=== PATIENT | female | born 2000 | race Caucasian/White ===

== ENCOUNTER 2018-08-27 21:28 | Emergency (ER) | payer OTHER ==
[2018-08-27 21:32] VITALS: TEMP 97.4
--- NOTE | 2018-08-27 21:37 | ED ---
Abdominal Pain HPI - General Source: patient Mode of arrival: ambulatory Limitations: no limitations <Riana Parham - Last Filed: 08/28/18 00:03> <Beckie Stuart - Last Filed: 08/28/18 05:17> <Ronnie Brownssodette Bravo - Last Filed: 08/28/18 06:47> - General Chief Complaint: Abdominal Pain Stated Complaint: Abd Pain Time Seen by Provider: 08/27/18 21:37 - History of Present Illness Initial Comments: 17 year female no past medical history presents today for chief complaint abdominal pain, n/v/d x 3 hours. Patient states that she has had nausea, vomiting abdominal pains since 6 p.m. He states that abdominal pain is diffuse , it is a crampy feeling almost as though her muscles are flexing. In addition patient admits to watery diarrhea, she has had 2 episodes of emesis, patient denies any hematemesis, melena or hematochezia. Patient denies any foul- smelling diarrhea or greasy stools. Patient denies any recent travel, or sick contacts. Patient denies any fever, chills, urgency, frequency, dysuria, hematuria, vaginal bleeding, vaginal discharge, chest pain, shortness of breath , dyspnea on exertion, back pain, flank pain, cough, rigors, sputum production. She states her last menstrual period was 07/27/2008, denies . Remainder of ROS negative. Patient appears well, in no acute distress, patient is ambulating without difficulty. (Riana Parham) - Related Data Home Medications Medication Instructions Recorded Confirmed Amoxic-Pot Clav 875-125Mg 1 tab PO BID 08/27/18 08/27/18 [Augmentin 875-125] Tri-Lo Jessie 1 tab PO DAILY 08/27/18 08/27/18 Previous Rx's Medication Instructions Recorded Famotidine [Pepcid] 20 mg PO BID #20 tablet 08/28/18 Ondansetron Odt [Zofran Odt] 4 mg PO Q8HR PRN #12 tab 08/28/18 Allergies Allergy/AdvReac Type Severity Reaction Status Date / Time No Known Allergies Allergy Verified 08/27/18 23:21 Review of Systems ROS Other: All systems not noted in ROS Statement are negative. Constitutional: Denies: fever, chills, night sweats ENT: Denies: ear pain, throat pain Respiratory: Denies: cough, dyspnea, wheezes Cardiovascular: Denies: chest pain, palpitations, dyspnea on exertion Endocrine: Denies: fatigue Gastrointestinal: Reports: abdominal pain, nausea, vomiting, diarrhea. Denies: constipation, hematemesis, melena, hematochezia Genitourinary: Denies: frequency, hematuria, discharge Musculoskeletal: Denies: back pain Skin: Denies: rash Neurological: Denies: headache, weakness, numbness, paresthesias, confusion, abnormal gait <Riana Parham - Last Filed: 08/28/18 00:03> ROS Other: All systems not noted in ROS Statement are negative. <Beckie Stuart - Last Filed: 08/28/18 05:17> ROS Other: All systems not noted in ROS Statement are negative. <Elzbieta Brown - Last Filed: 08/28/18 06:47> ROS Statement: Those systems with pertinent positive or pertinent negative responses have been documented in the HPI. Past Medical History Past Medical History: No Reported History History of Any Multi-Drug Resistant Organisms: None Reported Past Surgical History: No Surgical Hx Reported Past Psychological History: No Psychological Hx Reported Smoking Status: Never smoker Past Alcohol Use History: None Reported Past Drug Use History: None Reported <Riana Parham - Last Filed: 08/28/18 00:03> General Exam Limitations: no limitations <Riana Parham - Last Filed: 08/28/18 00:03> <Beckie Stuart - Last Filed: 08/28/18 05:17> <Elzbieta Brown - Last Filed: 08/28/18 06:47> - General Exam Comments Initial Comments: General: The patient is awake and alert, in no distress, and does not appear acutely ill. Eye: Pupils are equal, round and reactive to light, extra-ocular movements are intact. No nystagmus. There is normal conjunctiva bilaterally. No signs of icterus. Ears, nose, mouth and throat: There are moist mucous membranes and no oral lesions. Neck: The neck is supple, there is no tenderness or JVD. Cardiovascular: There is a regular rate and rhythm. No murmur, rub or gallop is appreciated. Respiratory: Lungs are clear to auscultation, respirations are non-labored, breath sounds are equal. No wheezes, stridor, rales, or rhonchi. Gastrointestinal: No noted diaphoresis, jaundice, pallor, protecting postures or squirming. Symmetrical pigmentation of abdomen without signs of inflammation, scars, or striae. Umbilicus mildline, inverted without swelling. No dilated veins. Abdomen contour scaphoid, no noted abdominal distention. No visible masses. No peristalsis, aortic pulsations, or ventral hernia. Bowel sounds audible in all 4 quadrants, unremarkable. Pain to palpation of the right upper quadrant epigastric and left upper quadrant. No tenderness to light or deep palpation in in the periumbilical, right lower quadrant, left lower quadrant or bilateral pelvic regions.. Liver edge, not palpable. Spleen edge, right and left kidney not palpable. Superior bladder margin non-tender. Special Testing: Negative [place], [place], [place], [place], cutaneous hyperesthesia. Negative Heel Jar test. No CVA tenderness. Digital rectal exam deferred. Negative sol turners or cullens sign Musculoskeletal: Normal ROM, no tenderness. Strength 5/5. Sensation intact. Pulses equal bilaterally 2+. Neurological: A&O x 3. CN II-XII intact, There are no obvious motor or sensory deficits. Coordination appears grossly intact. Speech is normal. Skin: Skin is warm and dry and no rashes or lesions are noted. Psychiatric: Cooperative, appropriate mood & affect, normal judgment. (Riana Parham) Vital Signs 08/27/18 08/27/18 08/28/18 21:30 23:36 01:35 Temperature 97.4 F L Pulse Rate 84 95 104 H Respiratory 18 18 17 Rate Blood Pressure 101/68 122/67 99/64 O2 Sat by Pulse 98 100 99 Oximetry Medical Decision Making - Lab Data Result diagrams: 08/27/18 22:06 08/27/18 22:06 <Riana Parham - Last Filed: 08/28/18 00:03> - Lab Data Result diagrams: 08/27/18 22:06 08/27/18 22:06 - Radiology Data Radiology results: report reviewed <Beckie Stuart - Last Filed: 08/28/18 05:17> - Lab Data Result diagrams: 08/27/18 22:06 10/31/18 22:06 <Elzbieta Brown - Last Filed: 08/28/18 06:47> - Medical Decision Making Laboratory findings as noted above. Urine hCG negative. Patient given 4 mg of Zofran by mouth. KUB and chest x-ray obtained revealing. No signs of acute abdomen on physical exam findings patient did have mild right upper quadrant pain, ultrasound of the gallbladder obtained revealing. (Riana Parham) Patient is a 17-year-old female who presents emergency department today with chief complaint of vomiting and diarrhea 3 hours. Patient's case was given to me as a sign out by a Sulma Parham. Patient's labs do show evidence of significant leukocytosis of 21,000 with left shift of 18,000. Liver enzymes, kidney function was normal. Urinalysis is negative for any significant infection. Patient had multiple episodes of diarrhea while in the emergency department. Patient later relates that she is currently on Augmentin for a sinus infection. I did obtain a C. diff. Patient's computed tomography scan of her abdomen and pelvis is negative for any acute process. No sign of appendicitis. Patient will be discharged at this time with diagnosis of gastroenteritis. Her white blood cell count is also likely elevated due to being on steroids at this time for sinus infection. Patient agrees to treatment plan will comply. Return parameters were discussed. Discharged with Zofran. (Beckie Stuart) I was available for consultation in the emergency department. The history and physical exam were done by the midlevel provider. I was consulted for this patient's care. I reviewed the case with the midlevel provider and based on their presentation of the patient, I agree with the assessment, medical decision making and plan of care as documented. (Elzbieta Brown) - Lab Data Lab Results 08/27/18 08/27/18 08/27/18 Range/Units 21:47 21:47 22:06 WBC (4.0-11.0) k/uL RBC (3.80-5.40) m/uL Hgb (11.4-16.0) gm/dL Hct (34.0-46.0) % MCV (80.0-100.0) fL MCH (25.0-35.0) pg MCHC (31.0-37.0) g/dL RDW (11.5-15.5) % Plt Count (150-450) k/uL Neutrophils % % Lymphocytes % % Monocytes % % Eosinophils % % Basophils % % Neutrophils # (1.3-7.7) k/uL Lymphocytes # (1.0-4.8) k/uL Monocytes # (0-1.0) k/uL Eosinophils # (0-0.7) k/uL Basophils # (0-0.2) k/uL Sodium 139 (137-145) mmol/L Potassium 4.5 (3.5-5.1) mmol/L Chloride 108 H (98-107) mmol/L Carbon Dioxide 22 (22-30) mmol/L Anion Gap 9 mmol/L BUN 13 (7-17) mg/dL Creatinine 0.68 (0.52-1.04) mg/dL Est GFR (CKD-EPI)AfAm >90 (>60 ml/min/1.73 sqM) Est GFR (CKD-EPI)NonAf >90 (>60 ml/min/1.73 sqM) Glucose 107 H (74-99) mg/dL Calcium 9.5 (8.4-10.2) mg/dL Total Bilirubin 0.8 (0.2-1.3) mg/dL AST 37 H (14-36) U/L ALT 32 (9-52) U/L Alkaline Phosphatase 61 (38-126) U/L Total Protein 7.8 (6.3-8.2) g/dL Albumin 4.3 (3.5-5.0) g/dL Amylase 45 (30-110) U/L Lipase 91 (23-300) U/L Urine Color Yellow Urine Appearance Cloudy H (Clear) Urine pH 5.0 (5.0-8.0) Ur Specific [place] 1.020 (1.001-1.035) Urine Protein Trace H (Negative) Urine Glucose (UA) Negative (Negative) Urine Ketones Negative (Negative) Urine Blood Trace H (Negative) Urine Nitrite Negative (Negative) Urine Bilirubin Negative (Negative) Urine Urobilinogen <2.0 (<2.0) mg/dL Ur Leukocyte Esterase Negative (Negative) Urine RBC 1 (0-5) /hpf Urine WBC 6 H (0-5) /hpf Ur Squamous Epith Cells 10 H (0-4) /hpf Urine Bacteria Rare H (None) /hpf Urine Mucus Many H (None) /hpf Urine HCG, Qual Not Detected (Not Detectd) Stool Occult Blood (Negative) C. difficile (EIA) Intrp (Negative) 08/27/18 08/28/18 08/28/18 Range/Units 22:06 00:14 00:15 WBC 21.6 H (4.0-11.0) k/uL RBC 5.07 (3.80-5.40) m/uL Hgb 15.1 (11.4-16.0) gm/dL Hct 45.4 (34.0-46.0) % MCV 89.5 (80.0-100.0) fL MCH 29.8 (25.0-35.0) pg MCHC 33.3 (31.0-37.0) g/dL RDW 13.0 (11.5-15.5) % Plt Count 335 (150-450) k/uL Neutrophils % 86 % Lymphocytes % 9 % Monocytes % 3 % Eosinophils % 1 % Basophils % 0 % Neutrophils # 18.5 H (1.3-7.7) k/uL Lymphocytes # 1.9 (1.0-4.8) k/uL Monocytes # 0.6 (0-1.0) k/uL Eosinophils # 0.3 (0-0.7) k/uL Basophils # 0.1 (0-0.2) k/uL Sodium (137-145) mmol/L Potassium (3.5-5.1) mmol/L Chloride (98-107) mmol/L Carbon Dioxide (22-30) mmol/L Anion Gap mmol/L BUN (7-17) mg/dL Creatinine (0.52-1.04) mg/dL Est GFR (CKD-EPI)AfAm (>60 ml/min/1.73 sqM) Est GFR (CKD-EPI)NonAf (>60 ml/min/1.73 sqM) Glucose (74-99) mg/dL Calcium (8.4-10.2) mg/dL Total Bilirubin (0.2-1.3) mg/dL AST (14-36) U/L ALT (9-52) U/L Alkaline Phosphatase (38-126) U/L Total Protein (6.3-8.2) g/dL Albumin (3.5-5.0) g/dL Amylase (30-110) U/L Lipase (23-300) U/L Urine Color Urine Appearance (Clear) Urine pH (5.0-8.0) Ur Specific [place] (1.001-1.035) Urine Protein (Negative) Urine Glucose (UA) (Negative) Urine Ketones (Negative) Urine Blood (Negative) Urine Nitrite (Negative) Urine Bilirubin (Negative) Urine Urobilinogen (<2.0) mg/dL Ur Leukocyte Esterase (Negative) Urine RBC (0-5) /hpf Urine WBC (0-5) /hpf Ur Squamous Epith Cells (0-4) /hpf Urine Bacteria (None) /hpf Urine Mucus (None) /hpf Urine HCG, Qual (Not Detectd) Stool Occult Blood Positive H (Negative) C. difficile (EIA) Intrp Negative (Negative) - Radiology Data Normal chest x-ray. Normal computed tomography scan of the abdomen and pelvis. Normal appendix. (Beckie Stuart) Disposition <Riana Parham - Last Filed: 08/28/18 00:03> Is patient prescribed a controlled substance at d/c from ED?: No Time of Disposition: 01:52 <Beckie Stuart - Last Filed: 08/28/18 05:17> <Elzbieta Brown - Last Filed: 08/28/18 06:47> Clinical Impression: Gastroenteritis Disposition: HOME SELF-CARE Condition: Good Instructions: Gastroenteritis (DC) Additional Instructions: Patient advised to follow-up with primary care physician. Take nausea medicine and use Pepcid as prescribed. Clear liquid diet for the next 24-48 hours. Patient should return to the emergency department if any alarming signs or symptoms occur. Prescriptions: Famotidine [Pepcid] 20 mg PO BID #20 tablet Ondansetron Odt [Zofran Odt] 4 mg PO Q8HR PRN #12 tab PRN Reason: Nausea Referrals: None,Stated [Primary Care Provider] - 1-2 days Erich Berry DO [STAFF PHYSICIAN] - 1-2 days
[2018-08-27] MEDS ORDERED: SODIUM CHLORIDE 0.9% 1,000 ML IV STA (21:38)
[2018-08-27] MEDS ORDERED: ONDANSETRON ODT 4 MG TAB PO STA (21:56)
[2018-08-27 22:02] LABS: Appearance,Urine Cloudy (Clear); Bacteria,Urine Rare /hpf; Bilirubin,Urine Negative (Negative); Blood,Urine Trace (Negative); Color,Urine Yellow; Glucose,Urine (UA) Negative (Negative); Ketones,Urine Negative (Negative); Leukocyte Esterase,Urine Negative (Negative); Mucus,Urine Many /hpf; Nitrite,Urine Negative (Negative); Protein,Urine Trace (Negative); RBC,Urine 1 /hpf (0-5); Squamous Epithelial Cell,Urine 10 /hpf (0-4); Urobilinogen,Urine <2.0 mg/dL (<2.0); WBC,Urine 6 /hpf (0-5)
[2018-08-27 22:26] LABS: Basophils # (A) 0.1 k/uL (0-0.2); Basophils % (A) 0 %; Eosinophils # (A) 0.3 k/uL (0-0.7); Eosinophils % (A) 1 %; HCT 45.4 % (34.0-46.0); HGB 15.1 gm/dL (11.4-16.0); Lymphocytes # (A) 1.9 k/uL (1.0-4.8); Lymphocytes % (A) 9 %; MCH 29.8 pg (25.0-35.0); MCHC 33.3 g/dL (31.0-37.0); MCV 89.5 fL (80.0-100.0); Mean Platelet Volume 6.8; Monocytes # (A) 0.6 k/uL (0-1.0); Monocytes % (A) 3 %; Neutrophils # (A) 18.5 k/uL (1.3-7.7); Neutrophils % (A) 86 %; Platelet Count 335 k/uL (150-450); RBC 5.07 m/uL (3.80-5.40); WBC 21.6 k/uL (4.0-11.0)
[2018-08-27 22:53] LABS: Albumin 4.3 g/dL (3.5-5.0); Amylase 45 U/L (30-110); Anion Gap 9 mmol/L; Blood Urea Nitrogen 13 mg/dL (7-17); Calcium 9.5 mg/dL (8.4-10.2); Carbon Dioxide 22 mmol/L (22-30); Chloride 108 mmol/L (98-107); Glucose 107 mg/dL (74-99); Lipase 91 U/L (23-300); Sodium 139 mmol/L (137-145); Total Bilirubin 0.8 mg/dL (0.2-1.3); Total Protein 7.8 g/dL (6.3-8.2)
[2018-08-27 22:55] LABS: ALT 32 U/L (9-52); AST 37 U/L (14-36); Potassium 4.5 mmol/L (3.5-5.1)
[2018-08-27 22:56] LABS: Alkaline Phosphatase 61 U/L (38-126)
--- NOTE | 2018-08-27 23:42 | CT ---
EXAMINATION TYPE: CT abdomen pelvis w con DATE OF EXAM: 08/27/2018 COMPARISON: HISTORY: Nausea and vomitting; generalized abdominal pain CT DLP: 550.5 mGycm Automated exposure control for dose reduction was used. TECHNIQUE: Helical acquisition of images was performed from the lung bases through the pelvis. CONTRAST: Performed without Oral Contrast and with IV Contrast, patient injected with 100 mL of Isovue 300. FINDINGS: Lung bases are clear. There is no pleural effusion. Heart size is normal. Liver spleen pancreas gallbladder appear normal. Bile ducts are not dilated. There is no adrenal mass . Kidneys show satisfactory contrast opacification. There is no hydronephrosis. Appendix is within no rmal limits and measures 6 mm. I see no intestinal wall thickening. There are no dilated loops. There is no mesenteric edema or adenopathy. Bladder distends smoothly. Uterus is retroverted. Lumbar spine shows normal alignment and disc space narrowing.. There is no inguinal hernia. Lumbar spine is intac t. IMPRESSION: NORMAL CT SCAN OF THE ABDOMEN PELVIS. NORMAL APPENDIX.
--- NOTE | 2018-08-27 23:44 | XR ---
EXAMINATION TYPE: XR chest 2V DATE OF EXAM: 08/27/2018 COMPARISON: NONE HISTORY: Vomiting abdominal pain TECHNIQUE: Frontal and lateral views of the chest are obtained. FINDINGS: Heart and mediastinum are normal. Lungs are clear. Diaphragm is normal. Bony thorax appear s normal. IMPRESSION: Normal chest
[2018-08-28] MEDS ORDERED: ONDANSETRON 4 MG/2 ML VIAL IVP STA (01:24)
[2018-08-28] MEDS ORDERED: PANTOPRAZOLE 40 MG/10 ML VIAL IVP STA (01:24)
[2018-08-28 01:40] VITALS: BP 99/64; PULSE 104; RESP 17
[2018-08-28] MEDS ORDERED: ONDANSETRON 4 MG ODT STARTER PACK 2 TAB BTL PO STA (02:20)
== END 2018-08-28 02:08 | disposition home or self-care (01) ==
LOC: EC 21:28
DX: K52.9 Noninfective gastroenteritis and colitis, unspecified (principal); Z79.3 Long term (current) use of hormonal contraceptives
CPT/HCPCS: 36415; 80053; 82150; 83690; 85025; 81001; 81025; 71046; 74177; 99284; 96374; 96375; 96361 ×2; Q9967; 82272; 87045; 87046; 87324